=== PATIENT | female | born 1965 | race Caucasian/White ===

== ENCOUNTER 2023-12-08 18:03 | Emergency (ER) | payer BC ==
[2023-12-08 18:56] LABS: A/G RATIO 0.9 (1.2-2.2); ALANINE AMINOTRANSFERASE,ALT 22 U/L (12-78); ALBUMIN 3.9 g/dL (3.4-5.0); ALKALINE PHOSPHATASE 103 U/L (46-116); ANION GAP 9.5 mmol/L (5.0-14.0); ASPARTATE AMNIOTRANSFERASE,AST 19 U/L (15-37); BILIRUBIN TOTAL 0.2 mg/dL (0.2-1.0); BLOOD UREA NITROGEN,BUN 20 mg/dL (7-18); CALCIUM 9.7 mg/dL (8.5-10.1); CARBON DIOXIDE,CO2 29 mmol/L (21-32); CHLORIDE,CL 103 mmol/L (100-108); CREATININE 0.9 mg/dL (0.6-1.0); EST CRCL DRUG DOSING (CG) 52.57 mL/min; ESTIMATED GFR 73 mL/min (>60); GLUCOSE RANDOM 99 mg/dL (74-106); POTASSIUM,K 3.7 mmol/L (3.6-5.2); PROTEIN TOTAL,TP 8.2 g/dL (6.4-8.2); SODIUM,NA 141 mmol/L (140-148)
[2023-12-08 19:29] LABS: HEMOGLOBIN 13.2 g/dL (11.2-15.5); WHITE BLOOD CELL COUNT,WBC 6.3 K/uL (3.2-11.0)
[2023-12-08 19:30] LABS: PLATELET COUNT,PLT 214 K/uL (130-375)
[2023-12-08 19:31] LABS: EOSINOPHILS ABSOLUTE MAN 0.19 K/uL (0.00-0.40); EOSINOPHILS PERCENT MAN 3 % (2-4); LYMPHOCYTES ABSOLUTE MAN 2.08 K/uL (0.8-3.3); LYMPHOCYTES PERCENT MAN 33 % (24-44); MONOCYTES ABSOLUTE MAN 0.44 K/uL (0.20-0.90); MONOCYTES PERCENT MAN 7 % (2-6); NEUTROPHILS ABSOLUTE MAN 3.59 K/uL (1.0-7.6); SEG NEUTROPHILS PERCENT MAN 57 % (36-66)
== END 2023-12-08 19:53 | disposition home or self-care (01) ==
LOC: JP.ED 18:03
DX: R07.89 Other chest pain (principal); Z88.0 Allergy status to penicillin
CPT/HCPCS: 36415; 71045; 71045-26; 80053; 84484; 85025; 93005; 99285